=== PATIENT | male | born 1985 | race Two or more races ===

== ENCOUNTER 2025-01-14 14:33 | Emergency (ER) | payer OTHER ==
[~2025-01-14] VITALS: Ht 188 cm; Wt 165.7 kg
[2025-01-14 14:42] VITALS: BP 141/92; PULSE 87; RESP 16; TEMP 98.7; O2SAT 98
--- NOTE | 2025-01-14 14:46 | Physician Documentation ---
History of Present Illness Stated Complaint: POSS COVID Time Seen by MD: 14:45 HPI This is a 39-year-old male that presents to the emergency department for complaints of shortness of breath cough cold congestion times 2-3 days. Patient reports that he was recently if any football camp with his son they were exposed to many people with COVID during that time. Patient denies fevers but reports previous history of lung surgeries. No other concerns reported at this time. Medication Reconciliation Allergies: Coded Allergies: ibuprofen (Verified Allergy, Unknown, anaphalaxis, 01/14/25) Scheduled PRN Albuterol Sulfate Nebs* (Proventil Nebs*), 2.5 MG IH Q4H PRN for SOB or wheezing Review of Systems ROS As stated above in the HPI, otherwise all systems are reviewed and negative. Physical Exam Physical Exam VITALS: Reviewed and as above. GENERAL: Alert, no apparent distress. HEENT: Normocephalic, atraumatic, PERRL, EOMI, dry mucosa, no erythema RESPIRATORY: Lungs clear, normal breath sounds, no respiratory distress. CHEST: No accessory muscle use, no retractions, moving air well into the lower bases bilaterally, no inspiratory or expiratory wheezes noted. CV: Regular rate, rhythm, no edema, no murmur, No: JVD GI: Soft, non-tender, bowels sounds present, no rebound, guarding, or rigidity BACK: No CVA tenderness, or swelling MUSCULOSKELETAL No deformities, no edema SKIN: Warm and dry, no rash NEURO: Oriented x4, No motor or sensory deficit PSYCH: Normal mood and affect, no agitation Medical Decision Making Findings This patient presents with symptoms suspicious for likely viral upper respiratory infection. Based on history and physical doubt sinusitis. COVID test was sent off and returned with positive results. Do not suspect underlying c ardiopulmonary process. I considered, but think unlikely, dangerous causes of this patients symptoms to include ACS, CHF or COPD exacerbations, pneumonia, pneumothorax. Patient is nontoxic appearing and not in need of emergent medical intervention. Patient told to self isolate at home until symptoms subside for 72 hours or until without a fever for 24 hours without antipyretics. Patient will follow up with primary care provider. Patient will be provided with strict return precautions. Differential Dx:Considerations: Include: AAA, Angina/MO, Aortic dissection, Appendicitis, Bowel obstruction, Cholangitis, Cholelithasis, Constipation, Diverticular disease, Esophageal rupture, Esophagitis, Gastritis/PUD, Gastroenteritis, GI hemorrhage, Hernia, Hepatitis, Inflammatory BD, Ischemic bowel, Pancreatitis, Porphyria, Testicular torsion, Trauma, intraabdominal, Urinary obstruction, Urinary tract infection, Urolithiasis, Other Departure Disposition: 01 HOME / SELF CARE / HOMELESS Impression: Primary Impression: Acute upper respiratory infection Additional Impressions: Fever Congestion of nasal sinus Cough Condition: Stable Discharge Instructions: Upper Respiratory Infection, Adult Additional Instructions: This patient presents with symptoms suspicious for likely viral upper respiratory infection. Based on history and physical doubt sinusitis. COVID test was sent off and returned with positive results. Do not suspect underlying cardiopulmonary process. I considered, but think unlikely, dangerous causes of this patients symptoms to include ACS, CHF or COPD exacerbations, pneumonia, pneumothorax. Patient is nontoxic appearing and not in need of emergent medical intervention. Patient told to self isolate at home until symptoms subside for 72 hours or until without a fever for 24 hours without antipyretics. Please follow up with her primary care provider. Please return to the emergency department if you have any worsening or recurrent symptoms or any additional concerning symptoms that we discussed here today i.e. patient shortness of breath chest pressure increased fevers inability to keep down water or liquids or any other concerning symptoms that we discussed today. Departure Forms: Excuse form Work or School Excused From: Work Excuse beginning now through the following date: Jan 15, 2025 May Return but still avoid physical Activity from now until: Jan 18, 2025 Referrals: NO PRIMARY CARE PROVIDER (PCP) Prescriptions Albuterol Sulfate Nebs* (Proventil Nebs*) 2.5 Mg/0.5 Ml Vial.neb 2.5 MG IH Q4H PRN for SOB or wheezing for 30 Days, #1 EACH Prov: ANGELICA CORMIER 01/14/25 Education Educated: Patient Educated regarding: diagnosis, treatment, need for follow up Signature Scribe Signature: A Attestation: Scribed for Angelica Cormier by SHIREEN Sims . 01/14/25 16:13 ANGELICA CORMIER Jan 14, 2025 14:46
--- NOTE | 2025-01-14 14:54 | ELECTROCARDIOGRAPH REPORT ---
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
--- NOTE | 2025-01-14 15:09 | RADIOLOGY REPORT ---
CHEST RADIOGRAPH Indication: CP Technique: Single frontal view of the chest was obtained Comparison: None FINDINGS: Lines and Tubes: None Lungs: No focal consolidation. Focal eventration of the left lateral hemidiaphragm with associated mi nimal opacity. Pleura: No effusion. No pneumothorax. Cardiomediastinal contours: Unremarkable Bones: No acute osseous abnormality. IMPRESSION: Left basilar atelectasis / scarring. Otherwise, no evidence for acute cardiopulmonary disease.
[2025-01-14] MEDS ORDERED: ALB0.5UD IH (16:11)
== END 2025-01-14 16:25 | disposition home or self-care (01) ==
LOC: ER 14:34
DX: J06.9 Acute upper respiratory infection, unspecified (principal); R05.9 Cough, unspecified; R50.9 Fever, unspecified; R09.81 Nasal congestion; R06.02 Shortness of breath; Z88.6 Allergy status to analgesic agent; Z20.822 Contact with and (suspected) exposure to COVID-19
CPT/HCPCS: 36415; 71045; 87811; 93005; 99285

== ENCOUNTER 2025-01-20 12:56 | Emergency (ER) | payer OTHER ==
[~2025-01-20] VITALS: Ht 188 cm; Wt 163.7 kg
[~2025-01-20 12:56] MED LIST: ALB0.5UD IH
[2025-01-20 13:03] VITALS: TEMP 97.4
--- NOTE | 2025-01-20 13:11 | ELECTROCARDIOGRAPH REPORT ---
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
--- NOTE | 2025-01-20 13:30 | RADIOLOGY REPORT ---
DI CHEST,TWO VIEWS, HISTORY: SOB COMPARISON: DI CHEST,SINGLE VIEW on DOS: 01/14/25 DI CHEST,SINGLE VIEW on DOS: 01/14/25 TECHNICAL DATA: 2 view of the chest was obtained. FINDINGS: Lines and tubes: None Cardiomediastinal silhouette: normal Pulmonary vasculature: normal Lung expansion: normal Lung airspace: normal Lung interstitium: normal Pleura: normal Pneumothorax: no Bones: Unremarkable Other: no IMPRESSION: No acute intrathoracic abnormality.
[2025-01-20 13:40] LABS: MEAN PLATELET VOLUME 7.6 FL (7.4-10.4); RED CELL DISTRIBUTION WIDTH 14.2 % (11.5-14.5)
[2025-01-20 14:01] LABS: CREATININE 0.97 MG/DL (0.60-1.10); PRO BRAIN NATRIURETIC PEPTIDE < 30 PG/ML (0-125); TOTAL CARBON DIOXIDE 28.8 MMOL/L (24-32); eCRCL 117 ML/MIN; eGFR 85 ML/MIN
--- NOTE | 2025-01-20 14:59 | Physician Documentation ---
History of Present Illness ~ Chief Complaint: Difficulty Breathing Stated Complaint: FLU SYMPTOMS Time Seen by MD: 14:52 Mode of Arrival: POV Exam Limitations: no limitations HPI Patient who was seen earlier this week and diagnosed with COVID. Here with continued shortness of breath. Just wanted to be rechecked. Smoked for like a year when he was in high school. Uses albuterol for allergies but does not have asthma. Symptoms started about a week ago. Medication Reconciliation Allergies: Coded Allergies: ibuprofen (Verified Allergy, Unknown, anaphalaxis, 01/14/25) Scheduled PRN Albuterol Sulfate Nebs* (Proventil Nebs*), 2.5 MG IH Q4H PRN for SOB or wheezing Review of Systems All Other Systems at this time: Reviewed and Negative Physical Exam Vital Signs: Temperature: 97.4, Source: Temporal, Heart Rate: 79, Respiratory Rate: 14, BP: 174/101, Pulse Oximetry: 97, Weight: 163.700 Oxygen Flow Rate: 0 General Appearance: alert Neck: normal inspection Respiratory: lungs clear, normal breath sounds Chest: no accessory muscle use Cardiovascular: regular rate, rhythm, no murmur Extremities: normal inspection Skin: normal color, warm/dry Neurologic: oriented x4 Psychiatric: appropriate Progress Results/Orders Results/Orders Orders - ADRIANA COX MD Chest,Two Views (01/20/25 13:08) Culture Blood (01/20/25 13:08) Saline Lock (01/20/25 13:08) Oxygen (01/20/25 13:08) Completed Orders - ADRIANA COX MD Chest,Two Views (01/20/25 13:08) Cbc/Diff (01/20/25 13:08) BMP (01/20/25 13:08) PBNP (01/20/25 13:08) Lacticsepsis (01/20/25 13:08) Electrocardiogram (01/20/25 13:08) Hs Troponin I W Calculations (01/20/25 13:40) D-Dimer (01/20/25 13:40) Vital Signs 01/20/25 01/20/25 01/20/25 01/20/25 13:03 14:05 14:11 15:22 Temp 97.4 Pulse 83 79 78 Resp 20 17 14 16 B/P (MAP) 169/6 174/101 (125) 145/92 (109) Pulse Ox 97 97 97 O2 Flow Rate 0 0 0 Laboratory Tests Test 01/20/25 13:31 01/20/25 13:32 White Blood Count 9.9 Red Blood Count 5.26 Hemoglobin 15.3 Hematocrit 46.2 Mean Corpuscular Volume 87.8 Mean Corpuscular Hemoglobin 29.0 Mean Corpuscular Hemoglobin Concent 33.0 Red Cell Distribution Width 14.2 Platelet Count 303 Mean Platelet Volume 7.6 Neutrophils (%) (Auto) 57.2 Lymphocytes (%) (Auto) 34.4 Monocytes (%) (Auto) 5.2 Eosinophils (%) (Auto) 2.1 Basophils (%) (Auto) 1.1 H Neutrophils # (Auto) 5.7 Lymphocytes # (Auto) 3.4 Monocytes # (Auto) 0.5 Eosinophils # (Auto) 0.2 Basophils # (Auto) 0.1 CBC Comment Sodium Level 141 Potassium Level 3.7 Chloride Level 105 Carbon Dioxide Level 28.8 Anion Gap 7 L Blood Urea Nitrogen 12 Creatinine 0.97 Estimated GFR/1.73 m2 85 BUN/Creatinine Ratio 12.4 Glucose Level 104 Lactic Acid Level 1.4 Calcium Level 9.0 Pro-B-Type Natriuretic Peptide < 30 Albumin 3.8 Chemistry Comments D-Dimer 0.24 D-Dimer Comment Troponin I High Sensitivity 7 Microbiology Date/Time Source Procedure Growth Status 01/20/25 13:32 Blood Hand Right Blood Culture - Preliminary NEGATIVE (LESS THAN 24 HOURS) Resulted Medical Decision Making Additional Infomation Did full workup on patient. Troponin negative and D-dimer negative. Chest x- ray unremarkable. EKG, CBC, chemistry panel normal. Reassured patient that the COVID would likely be getting better. He is well-appearing with unremarkable exam and normal vital signs. Discharged home in good condition. Follow up with PCP if not improving or return if new or worsening symptoms. Departure Disposition: HOME / SELF CARE / HOMELESS Impression: Primary Impression: COVID-19 Condition: Stable Additional Instructions: Follow up with your doctor if not improving over the next 7-10 days. Return if new or worsening symptoms. Referrals: NO PRIMARY CARE PROVIDER (PCP) Education Educated: Patient Educated regarding: diagnosis, treatment, prognosis, need for follow up Signature Scribe Signature: No scribe Attestation: No scribe ADRIANA COX MD Jan 20, 2025 14:59
[2025-01-20 15:22] VITALS: BP 145/92; PULSE 78; RESP 16; O2SAT 97
== END 2025-01-20 15:43 | disposition home or self-care (01) ==
LOC: ER 12:57
DX: U07.1 COVID-19 (principal); F17.200 Nicotine dependence, unspecified, uncomplicated; Z88.6 Allergy status to analgesic agent
CPT/HCPCS: 36415; 71046; 80048; 83605; 83880; 84484; 85025; 85379; 87040; 93005; 99285; A6449